=== PATIENT | male | born 1995 | race Caucasian/White ===

== ENCOUNTER 2024-09-08 10:34 | Emergency (ER) | payer BC ==
[2024-09-08] MEDS: Lidocaine 4% Patch TOP ONE (12:06)
[2024-09-08] MEDS: Ibuprofen 600 MG Tab PO ONE (12:06)
[2024-09-08] MEDS: Baclofen 10 MG Tab PO ONE (12:20)
[2024-09-08] MEDS: Ketorolac 30 MG/ML SDV IM ONE (12:58)
[2024-09-08 13:01] LABS: APPEARANCE,URINE CLEAR; BILIRUBIN,URINE NEGATIVE (NEGATIVE); COLOR,URINE YELLOW; GLUCOSE,URINE NEGATIVE (NEGATIVE); KETONES,URINE TRACE mg/dL (NEGATIVE); LEUKOCYTE ESTERASE,URINE NEGATIVE (NEGATIVE); NITRITE,URINE NEGATIVE (NEGATIVE); OCCULT BLOOD,URINE NEGATIVE (NEGATIVE); PROTEIN,URINE TRACE mg/dL (NEGATIVE); UROBILINOGEN,URINE 0.2 EU/dL (<2.0)
[2024-09-08 13:10] LABS: BACTERIA,URINE RARE (NEGATIVE); EPITHELIAL CELLS,URINE RARE (NONE-FEW); RBC,URINE 0-3 (0-2/HPF); WBC,URINE 0-1 (0-5/HPF)
== END 2024-09-08 13:28 | disposition home or self-care (01) ==
LOC: MW.ED 10:34
DX: M62.830 Muscle spasm of back (principal)
CPT/HCPCS: 81001; 96372; 99284; A9270; J1885; 99283